=== PATIENT | male | born 1995 | race Caucasian/White ===

== ENCOUNTER 2019-09-11 16:35 | Emergency (ER) | payer OTHER, MEDICAID, SELFPAY ==
[2019-09-11 16:36] VITALS: BP 132/78; PULSE 92; RESP 18; TEMP 36.6; O2SAT 97; BMI 29.0
--- NOTE | 2019-09-11 17:51 | US_ITS ---
STUDY: SCROTUM ULTRASOUND REASON FOR EXAM: Male, 23 years old. LEFT TESTICLE PAIN X 3 DAYS TECHNIQUE: Ultrasound evaluation of the scrotum was performed with color Doppler and static pavon-scale imaging. COMPARISON: None. FINDINGS: RIGHT TESTICLE INTRATESTICULAR: There is a normal size of the right testicle. The right testicle measures 4.4 x 2.8 x 2.2 cm. There is a homogenous echotexture. There is normal arterial and normal venous vascularity. There is no demonstrated right testicular mass or cyst. EXTRATESTICULAR: The epididymis is normal in size. The epididymis head measures 1.4 x 1.4 x 0.9 cm. There is normal vascularity of the epididymis. There is no demonstrated epididymal cystic structure. There is no demonstrated hydrocele. There is no demonstrated varicocele. There is no demonstrated extratesticular mass or cyst. LEFT TESTICLE INTRATESTICULAR: There is a normal size of the left testicle. The left testicle measures 4.0 x 3.3 x 2.0 cm. There is a homogenous echotexture. There is normal arterial and normal venous vascularity. There is no demonstrated left testicular mass or cyst. EXTRATESTICULAR: The epididymis is normal in size. The epididymis head measures 1.2 x 1.1 x 0.8 cm. There is normal vascularity of the epididymis. There is no demonstrated epididymal cystic structure. There is a small hydrocele. There is no demonstrated varicocele. There is no demonstrated extratesticular mass or cyst. US/Testicular with Arterial Flow IMPRESSION: No evidence of torsion or epididymitis. Small hydrocele on the left. Electronically Signed: Waqar Hernandez MD at 20:00 EDT Tel , Service support ,
--- NOTE | 2019-09-11 17:52 | ED.VIS.GEN ---
History of Present Illness Chief Complaint: Complaint Detail of Chief Complaint: Left testicular pain and swelling Informant: Patient Onset: Days - 3 days Context: Gradual Onset Current Severity: Mild Maximum Severity: Moderate Narrative: Patient presents with 3-day history of left testicular pain and swelling. He denies any injury. He denies discharge or history of STD. No urinary symptoms. Past Medical History - Allergies and Home Meds Allergies/Adverse Reactions: Allergies Penicillins Allergy (Verified 09/11/19 16:38) Hives Primary Care Physician: NOT,DEFINED [NON-STAFF] - Past Medical History: None Review of Systems General: Denies: Chills, Fever Eyes: Denies: Visual changes - bilaterally ENT: Denies: Bilateral ear pain, - Respiratory: Denies: Dyspnea, Cough Gastrointestinal: Denies: Abdominal pain, Nausea, Vomiting, Diarrhea Genitourinary: Reports: - - Left testicle pain and swelling. Denies: Dysuria Musculoskeletal: Denies: Extremity Pain Skin: Denies: Rash Neurological: Denies: Headache Hematologic: Denies: Easy bruising, Easy bleeding Allergy: Denies: Uticaria Physical Exam Vital Signs/Narrative: Vital Signs Temp Pulse Resp BP Pulse Ox 09/11/19 16:36 97.9 F 92 18 132/78 H 97 Inital Vital Signs reviewed: Yes General: Well nourished, Well developed Head: Normocephalic ENT: Moist mucous membranes Neck: Supple Cardiovascular: Regular rate, Regular rhythm Respiratory: No distress, CTA bilaterally Abdomen: Soft, Nontender : - - Mild tenderness to the left testicle. There is tenderness with edema noted to the epididymis. No changes to the scrotum noted. No penile lesions. No discharge. Skin: Normal color Neurological: Alert, Oriented x3 Psychological: Normal affect Diagnostic/Tx/Re-eval Impressions Testicular Ultrasound 09/11/19 17:51 IMPRESSION: No evidence of torsion or epididymitis. Small hydrocele on the left. Electronically Signed: Waqar Hernandez MD at 20:00 EDT Tel , Service support , 09/11/19 17:51 US Testicular [Testicular with Arterial Flow] [US] Stat - Medical Decision Making Testicular ultrasound reveals evidence of hydrocele. No mass or evidence of torsion. No sign of epididymitis. Patient be treated with naproxen. He was counseled on supportive underwear. He will be given phone number for urology as needed. ED Disposition - Plan for ED Patient: Disposition: Home or Assisted Living Diagnosis: Hydrocele Instructions: ED Hydrocele Type Not Specified Prescriptions: Naproxen [Naprosyn] 500 mg PO BID PRN #20 tab Transmission Status: Pending to [facility] Referrals: Carlos Seals MD [STAFF PHYSICIAN] - 1 Week if not improving
[2019-09-11 20:38] VITALS: BP 120/81; PULSE 66
[2019-09-11] MEDS: Naproxen 500 MG Tablet PO (20:40)
== END 2019-09-11 20:43 | disposition home or self-care (01) ==
PROVIDERS: Emergency Provider Emergency Medicine
DX: N43.3 Hydrocele, unspecified (principal)
CPT/HCPCS: 76870; 93976; 99283

== ENCOUNTER 2019-11-07 18:38 | Emergency (ER) | payer MEDICAID, SELFPAY ==
[2019-11-07 18:39] VITALS: BP 135/89; PULSE 84; RESP 16; TEMP 36.3; O2SAT 98; BMI 28.2
--- NOTE | 2019-11-07 18:47 | ED.VIS.GEN ---
History of Present Illness Chief Complaint: Upper Extremity Injury Informant: Patient Onset: Weeks Context: Gradual Onset Timing: Intermittent Current Severity: Moderate Maximum Severity: Moderate Narrative: Patient is a 24-year-old male that presents to the emergency department with intermittent forearm pain that goes down to his hand. He states he is been having it for a few weeks. He states if he overexerts himself of lifting, he will get cramping in the muscle and down to his hand. He states sometimes, it feels like the hand will be weak. He states it is not constant. It will happen from time to time. He has no history of trauma. Prior similar symptoms: No Recent Illness/Hospitalization: No Past Medical History - Allergies and Home Meds Allergies/Adverse Reactions: Allergies Penicillins Allergy (Verified 11/07/19 18:39) Hives Primary Care Physician: Samantha Yoo DO [STAFF PHYSICIAN] - Prior records reviewed: Yes Past Medical History: None Surgical History: no surgical history Smoking Status: Never smoker Review of Systems General: Denies: Chills, Fever, Sweats Eyes: Denies: Visual changes - bilaterally, Diplopia ENT: Denies: Rhinorrhea, Sore throat Cardiovascular: Denies: Chest pain, Palpitations Respiratory: Denies: Dyspnea, Cough, Dyspnea on exertion Gastrointestinal: Denies: Abdominal pain, Nausea, Vomiting, Diarrhea, Melena, Hematochezia Genitourinary: Denies: Dysuria, Hematuria, Frequency Musculoskeletal: Denies: Back pain, Extremity Pain Skin: Denies: Rash, Wounds Neurological: Denies: Headache, Weakness, Numbness Physical Exam Vital Signs/Narrative: Vital Signs Temp Pulse Resp BP Pulse Ox 11/07/19 18:39 97.4 F L 84 16 135/89 H 98 Inital Vital Signs reviewed: Yes General: Well nourished, Well developed, No Acute Distress Head: Normocephalic, Atraumatic Eyes: Perrl, EOMI ENT: Moist mucous membranes, No rhinorrhea Neck: Supple, Nontender Cardiovascular: Regular rate, Regular rhythm, No murmurs Respiratory: No distress, CTA bilaterally, Chest nontender Abdomen: Soft, Nontender, Nondistended, Normal bowel sounds Back: Nontender, Normal Inspection Extremities: Nontender, No edema Skin: Normal color, No rash Neurological: Alert, Oriented x3, Cranial nerves II-XII grossly intact, Normal Strength, Normal Sensation Psychological: Normal affect, Normal Mood Diagnostic/Tx/Re-eval - Medical Decision Making The patient has normal pulses. There is normal flexion and extension of the wrist. There is normal pulses. There is no weakness of the intrinsics. Clinically, I do feel that he likely has a cubital tunnel based on the description of his pain. I am going to place him on a short burst of steroids and given outpatient orthopedic follow-up. He may benefit from physical therapy, EMGs or even surgery. He is comfortable with this plan of care. Impression 1. Peripheral neuropathy ED Disposition - Plan for ED Patient: Instructions: ED Carpal Tunnel Prescriptions: MethylPREDNISolone DosePak [Medrol DosePak] 4 mg PO UD #1 box Prescription Printed Referrals: Samantha Yoo DO [STAFF PHYSICIAN] -
== END 2019-11-07 19:07 | disposition home or self-care (01) ==
LOC: ED 19:00
PROVIDERS: Emergency Provider Emergency Medicine
DX: G62.9 Polyneuropathy, unspecified (principal)
CPT/HCPCS: 99281; 99282